=== PATIENT | male | born 1960 | race Caucasian/White ===

== ENCOUNTER 2017-01-23 05:31 | Observation (INO) | payer OTHER ==
[~2017-01-23] VITALS: Ht 182.9 cm; Wt 106.8 kg
[2017-01-23] MEDS ORDERED: NO HOME MEDICATION XX (05:45)
[2017-01-23 06:12] LABS: BASO % 0.5 % (0-2); EOS % 6.1 % (0-7); EOSINOPHIL ABSOLUTE COUNT 0.4 tho/cmm (0.0-0.7); HCT-HEMATOCRIT 43.3 % (36.0-53.5); HGB-HEMOGLOBIN 15.1 gm/dl (13.5-17.0); IMMATURE GRANULOCYTES ABSOLUTE 0.01 tho/cmm (0-0.03); IMMATURE GRANULOCYTES PERCENT 0.2 % (0-0.3); LYMPH % 36.7 % (20-45); LYMPH ABSOLUTE COUNT 2.2 tho/cmm (0.8-4.5); MCH (MEAN CORPUSCULAR HGB) 29.3 pg (28.0-32.0); MCHC MEAN CORPUSCULAR HGB CONC 34.9 % (32.0-36.0); MCV (MEAN CELL VOLUME) 84.1 fl (82.0-96.0); MEAN PLATELET VOLUME 9.4 cmc (9.4-12.4); MONO % 11.8 % (0-12); MONOCYTE ABSOLUTE COUNT 0.7 tho/cmm (0.0-1.2); NEUTROPHIL ABSOLUTE COUNT 2.7 tho/cmm (1.6-8.0); NEUTROPHIL-AUTOMATED 2.7 tho/cmm (1.6-8.0); NEUTROPHILS % 44.7 % (40-80); PLATELET COUNT 198 tho/cmm (150-450); RED BLOOD COUNT 5.15 mil/cmm (4.40-5.70); RED CELL DISTRIBUTION WIDTH 12.3 % (12.4-16.4)
[2017-01-23 06:26] LABS: ALB/GLOB RATIO 1.2 (0.8-2.0); ALBUMIN 3.7 g/dl (3.5-5.0); ALKALINE PHOSPHATASE 85 U/L (33-138); ALT/SGPT 42 U/L (12-78); BILIRUBIN,TOTAL 0.4 mg/dl (0.0-1.5); BLOOD UREA NITROGEN 10 mg/dl (6-24); CALCIUM 8.2 mg/dl (8.5-10.5); CARBON DIOXIDE-VENOUS 25 mmol/L (22-32); CHLORIDE 109 mmol/l (96-110); CREATININE 1.41 mg/dl (0.60-1.30); GLUCOSE 119 mg/dL (70-110); LIPASE 402 U/L (73-393); SODIUM 140 mmol/L (135-145); eGFR VALUE FOR BLACK 64 mL/Min
[2017-01-23 06:27] LABS: ANION GAP 10 mmol/L (0-20); AST/SGOT 64 U/L (10-40); MAGNESIUM 2.1 mg/dl (1.8-2.6)
== END 2017-01-23 16:15 ==
LOC: EDMED 05:31 → EMR2 09:00
PROVIDERS: Emergency Medicine; ADMIT Internal Medicine Cardiovascular Disease
DX: R07.9 Chest pain, unspecified (principal); R00.1 Bradycardia, unspecified; Z88.0 Allergy status to penicillin; Z82.49 Family history of ischemic heart disease and other diseases of the circulatory system
CPT/HCPCS: C8928; C8930; J7030